=== PATIENT | female | born 1965 | race Caucasian/White ===

== ENCOUNTER 2016-04-22 05:41 | Emergency (ER) | payer SELFPAY ==
[2016-04-22] MEDS ORDERED: ASPIRIN 81 MG CHEW PO STA (06:01)
[2016-04-22] MEDS ORDERED: METOCLOPRAMIDE 5 MG/ML 2 ML VIAL IVP STA (06:25)
--- NOTE | 2016-04-22 06:28 | ED ---
Chest Pain HPI - General Chief Complaint: Chest Pain Stated Complaint: Chest/Back Pain Time Seen by Provider: 04/22/16 06:01 Source: patient, family, RN notes reviewed Mode of arrival: ambulatory Limitations: no limitations - History of Present Illness Initial Comments: This patient is 50-year-old woman who has had nearly one week of left sided chest pain. She states the pain is constant, sharp, moderate to severe. It gets worse when she presses on her ribs or if she takes a deep breath. She states it better if she remains still. She was seen at an urgent care and told that they felt she had pleuritis. She states that they did check an x-ray and an EKG. Over the course of tonight she has had 4-5 episodes of vomiting. She is also now having some moderate aching headache. MD Complaint: chest pain Onset/Timin -: days(s) Onset: during rest Pain Location: left chest Pain Radiation: none Severity: severe Quality: sharp Consistency: constant Improves With: nothing Worsens With: inspiration, palpation Anginal Symptoms: nausea, vomiting Treatments Prior to Arrival: none - Related Data Home Medications Medication Instructions Recorded Confirmed Albuterol Sulfate [Proair Hfa] 1 - 2 puff INHALATION RT-Q6H PRN 12/02/15 Cetirizine HCl [Zyrtec] 10 mg PO DAILY 12/02/15 04/22/16 Cholecalciferol [Vitamin D3] 1,000 unit PO DAILY 12/02/15 04/22/16 Cyclobenzaprine [Flexeril] 10 mg PO BID PRN 12/02/15 04/22/16 Famotidine [Pepcid] 20 mg PO BID 12/02/15 04/22/16 Fluticasone Nasal [place] [Flonase 1 spray EA NOSTRIL DAILY 12/02/15 04/22/16 Nasal [place]] HYDROcodone/APAP 5-325MG [[place] 1 tab PO Q6HR PRN 12/02/15 04/22/16 5-325] Ibuprofen [Motrin] 800 mg PO TID PRN 12/02/15 04/22/16 Multivitamins, Thera [Multivitamin] 1 tab PO DAILY 12/02/15 04/22/16 l Acidophil/B Lactis/B [place] 460 mg PO DAILY 12/02/15 04/22/16 [Florajen3 Capsule] Allergies Allergy/AdvReac Type Severity Reaction Status Date / Time cefaclor [From [facility]] Allergy Unknown Verified 04/22/16 05:51 clindamycin Allergy Unknown Verified 04/22/16 05:51 Penicillins Allergy Rash/Hives Verified 04/22/16 05:51 Review of Systems ROS Statement: Those systems with pertinent positive or pertinent negative responses have been documented in the HPI. ROS Other: All systems not noted in ROS Statement are negative. Constitutional: Denies: fever, chills Respiratory: Denies: cough, dyspnea, wheezes, hemoptysis Cardiovascular: Reports: as per HPI, chest pain. Denies: palpitations, orthopnea, edema, syncope Gastrointestinal: Reports: nausea, vomiting. Denies: abdominal pain, diarrhea, constipation, melena, hematochezia Genitourinary: Denies: dysuria, hematuria Musculoskeletal: Denies: back pain Skin: Denies: rash Neurological: Reports: headache. Denies: weakness, numbness, paresthesias EKG Findings - EKG Results: EKG: interpreted by ANNABELLA DAY, sinus rhythm (Rate 89 bpm), normal axis, normal QRS, normal ST/T, no acute changes Past Medical History Past Medical History: Fibromyalgia, Osteoarthritis (OA) Additional Past Medical History / Comment(s): ARTHRITIS, SPURS, DJD, NEUROPATHY History of Any Multi-Drug Resistant Organisms: None Reported Past Surgical History: Section, Cholecystectomy Past Psychological History: Anxiety Smoking Status: Current every day smoker Past Alcohol Use History: Occasional Past Drug Use History: None Reported General Exam Limitations: no limitations General appearance: alert, in no apparent distress Head exam: Present: atraumatic, normocephalic, normal inspection Eye exam: Present: normal appearance. Absent: scleral icterus, conjunctival injection ENT exam: Present: normal oropharynx Neck exam: Present: normal inspection, full ROM Respiratory exam: Present: normal lung sounds bilaterally, chest wall tenderness. Absent: respiratory distress, wheezes, rales, rhonchi, stridor, accessory muscle use, decreased breath sounds, prolonged expiratory Cardiovascular Exam: Present: regular rate, normal rhythm, normal heart sounds. Absent: systolic murmur, diastolic murmur, rubs, gallop GI/Abdominal exam: Present: soft. Absent: distended, tenderness, guarding, rebound, mass Extremities exam: Present: normal inspection, normal capillary refill. Absent: pedal edema, calf tenderness Back exam: Present: normal inspection. Absent: CVA tenderness (R), CVA tenderness (L) Neurological exam: Present: alert Skin exam: Present: warm, dry, intact, normal color. Absent: rash, cyanosis, diaphoretic, erythema, petechiae, pallor, mottled Course Vital Signs 04/22/16 04/22/16 05:49 06:23 Temperature 97 F L Pulse Rate 95 85 Respiratory 20 20 Rate Blood Pressure 123/68 129/60 O2 Sat by Pulse 100 100 Oximetry Disposition Clinical Impression: Viral syndrome, Pleuritis Disposition: HOME SELF-CARE Condition: Fair Instructions: Pleurisy (ED), Viral Syndrome (ED) Referrals: Janneth Benjamin MD [Primary Care Provider] - 1-2 days
[2016-04-22 06:34] LABS: Basophils % (A) 0 %; CH 35.8; CHCM 35.2; Eosinophils # (A) 0.1 k/uL (0-0.7); Eosinophils % (A) 1 %; HCT 44.5 % (34.0-46.0); HGB 15.3 gm/dL (11.4-16.0); Luc # (Auto) 0.08; Luc % (Auto) 1; Lymphocytes # (A) 1.7 k/uL (1.0-4.8); Lymphocytes % (A) 14 %; MCH 34.9 pg (25.0-35.0); MCHC 34.3 g/dL (31.0-37.0); Mean Platelet Volume 7.1; Monocytes # (A) 0.5 k/uL (0-1.0); Monocytes % (A) 5 %; Neutrophils # (A) 9.1 k/uL (1.3-7.7); Neutrophils % (A) 80 %; RBC 4.36 m/uL (3.80-5.40); RDW 12.3 % (11.5-15.5); WBC 11.5 k/uL (3.8-10.6); WBC (Perox) 11.46
[2016-04-22 06:43] LABS: ALT 37 U/L (9-52); AST 19 U/L (14-36); Alkaline Phosphatase 75 U/L (38-126); Amylase 46 U/L (30-110); Anion Gap 9 mmol/L; Blood Urea Nitrogen 10 mg/dL (7-17); Calcium 9.6 mg/dL (8.4-10.2); Carbon Dioxide 25 mmol/L (22-30); Chloride 107 mmol/L (98-107); Glucose 108 mg/dL (74-99); Magnesium 1.8 mg/dL (1.6-2.3); Non-African American GFR(MDRD) >60 (>60 ml/min/1.73 sqM); Sodium 141 mmol/L (137-145); Total Bilirubin 0.5 mg/dL (0.2-1.3); Total Protein 7.3 g/dL (6.3-8.2)
--- NOTE | 2016-04-22 06:47 | XR ---
EXAMINATION TYPE: XR chest 1V portable DATE OF EXAM: 04/22/2016 6:36 AM COMPARISON: 07/31/2013 HISTORY: History of chest pain, severe headaches. TECHNIQUE: Single frontal view of the chest is obtained. FINDINGS: Mild chronic interstitial lung changes are suggested. No definite focal pneumonia or pneumothorax or pleural effusion is noted.. The cardiac silhouette size is within normal limits. The osseous struc tures are intact. IMPRESSION: 1. No definite active lung infiltrates. 2. Chronic lung changes.
[2016-04-22] MEDS ORDERED: MORPHINE SULFATE 4 MG/ML SYRINGE IV STA (09:09)
[2016-04-22] MEDS ORDERED: diphenhydrAMINE 50 MG/ML 1 ML VIAL IVP STA (09:09)
[2016-04-22 10:07] VITALS: BP 128/60; PULSE 97; RESP 16; TEMP 97.7
== END 2016-04-22 10:11 | disposition home or self-care (01) ==
LOC: EC 05:41
DX: B34.9 Viral infection, unspecified (principal); R09.1 Pleurisy; R51 Headache; Z79.899 Other long term (current) drug therapy; Z79.51 Long term (current) use of inhaled steroids; Z88.1 Allergy status to other antibiotic agents; Z88.0 Allergy status to penicillin; M19.90 Unspecified osteoarthritis, unspecified site; F17.200 Nicotine dependence, unspecified, uncomplicated
CPT/HCPCS: 36415; 93005; 85379; 80053; 82150; 83690; 83735; 84484; 85025; 71010; 99285; 96374; J2765

== ENCOUNTER 2016-07-11 11:30 | Day surgery (SDC) | payer OTHER ==
[2016-07-11 12:24] VITALS: TEMP 97.8
[2016-07-11 13:45] VITALS: BP 113/67; PULSE 68; RESP 16
--- NOTE | 2016-07-11 14:08 | US ---
EXAMINATION TYPE: US FNA thyroid DATE OF EXAM: 07/11/2016 1:39 PM COMPARISON: NONE HISTORY: Thyroid nodule, E04.1 Maximal barrier technique was utilized. Ultrasound using sterile technique. The skin overlying the no dule was localized with ultrasound and the overlying skin prepped and draped. Lidocaine used for loca l anesthesia. 5 passes with a 25-gauge needle were made into the nodule under ultrasound guidance. As pirate specimen submitted to cytology. Following the procedure hemostasis achieved. No immediate comp lication IMPRESSION: Status post ultrasound-guided fine-needle aspiration of thyroid nodule, pathology pending .
== END 2016-07-11 13:50 | disposition home or self-care (01) ==
LOC: RADPROMAIN 11:30
PROVIDERS: ATTEND Surgery
DX: E04.1 Nontoxic single thyroid nodule (principal)
CPT/HCPCS: 10022; 76942; 88173; 88305

== ENCOUNTER → 2016-09-29 | Outpatient (CLI) | payer OTHER ==
--- NOTE | 2016-09-29 10:48 | USB ---
Reason for exam: follow-up at short interval from prior study. History: Family history of breast cancer in maternal aunt at age 40, breast cancer in maternal grandmother at age 80, and breast cancer in mother at age 65. US breast aspiration single LT of the left breast, March 28, 2016. Benign US biopsy breast VAD RT of the right breast, March 28, 2016. Benign US breast aspiration single LT of the left breast, April 22, 2015. Benign US biopsy breast VAD LT of the left breast, April 22, 2015. Indicated problem(s): palpable abnormality in both breasts. Physical Findings: Nurse did not find any significant physical abnormalities on exam. US Breast Limited BILAT Right breast ultrasound includes all four quadrants, the retroareolar region and axilla. Finding demonstrates a 1.2 x 0.8 x 0.9cm oval, solid lesion at 6 o'clock, prior biopsy, a 0.7 x 0.5 x 0.6cm oval, cystic lesion at 8 o'clock, a 0.8 x 0.6 x 0.8cm oval, cystic lesion at 11 o'clock BB, a 1.4 x 1.1 x 1.5cm oval, cystic lesion at 10 o'clock BB and a 1.3 x 1.0 x 2.2cm oval, cystic lesion at 10 o'clock BB. Left breast ultrasound demonstrates a 1.1 x 0.8 x 1.0cm oval, cystic lesion at 2 o'clock and a 0.5 x 0.5 x 1.1cm cystic lesion at 3 o'clock. Numerous scattered cysts. These results were verbally communicated with the patient and result sheet given to the patient on 09/29/16. ASSESSMENT: Benign, BI-RAD 2 RECOMMENDATION: Routine screening mammogram of both breasts in 6 months. Back on schedule.
== END | disposition home or self-care (01) ==
LOC: RADUSWWP 09:27
PROVIDERS: ATTEND Internal Medicine
DX: R92.8 Other abnormal and inconclusive findings on diagnostic imaging of breast (principal)

== ENCOUNTER → 2016-10-20 | Outpatient (CLI) | payer OTHER ==
--- NOTE | 2016-10-20 14:36 | US ---
EXAMINATION TYPE: US pelvic complete DATE OF EXAM: 10/20/2016 COMPARISON: NONE CLINICAL HISTORY: R10.2 Pelvic Pain. LLQ pain, h/o ovarian cysts and uterine fibroid, [employer] 4yrs a go, 2 c-sections TECHNIQUE: TA Date of LMP: 4 yrs ago EXAM MEASUREMENTS: Uterus: 9.2 x 5.9 x 4.4cm Endometrial Stripe: 0.4 cm Right Ovary: 2.5 x 1.8 x 1.7 cm Left Ovary: 2.4 x 1.7 x 1.8 cm 1. Uterus: Anteverted 1.8cm left fundal fibroid seen, 0.8cm calcification noted within GOGO 2. Endometrium: wnl 3. Right Ovary: wnl 4. Left Ovary: wnl 5. Bilateral Adnexa: wnl 6. Posterior cul-de-sac: wnl IMPRESSION: 1. Uterine fibroid. 2. Echogenic focus within the lower uterine segment.
== END | disposition home or self-care (01) ==
LOC: RADUSWWP 13:36
PROVIDERS: ATTEND Internal Medicine
DX: D25.9 Leiomyoma of uterus, unspecified (principal)
CPT/HCPCS: 76856

== ENCOUNTER → 2016-12-05 | Outpatient (CLI) | payer OTHER ==
--- NOTE | 2016-12-05 16:04 | XR ---
EXAMINATION TYPE: XR hand complete LT DATE OF EXAM: 12/05/2016 COMPARISON: NONE HISTORY: Hit with long one week prior TECHNIQUE: Three-view left hand FINDINGS: No acute fractures are evident. The patient's ring is on during this exam. Soft tissues maxwell ear unremarkable. IMPRESSION: 1. Normal three-view left hand
--- NOTE | 2016-12-05 16:05 | XR ---
EXAMINATION TYPE: XR wrist complete LT DATE OF EXAM: 12/05/2016 COMPARISON: NONE HISTORY: Left wrist hit by log TECHNIQUE: Three-view left wrist FINDINGS: No acute fractures are evident. Soft tissues are normal. Nuclear medicine bone scan could b e performed for continued pain. IMPRESSION: 1. Normal three-view left wrist
== END | disposition home or self-care (01) ==
LOC: RADXRYALE 15:13
PROVIDERS: ATTEND Internal Medicine
DX: M79.642 Pain in left hand (principal); M25.532 Pain in left wrist

== ENCOUNTER → 2017-01-01 | Outpatient (CLI) | payer OTHER ==
--- NOTE | 2017-01-01 15:25 | XR ---
EXAMINATION TYPE: XR foot complete RT DATE OF EXAM: 01/01/2017 CLINICAL HISTORY: Right foot pain after injury last week. TECHNIQUE: Frontal, lateral, and oblique images of the right foot are obtained. COMPARISON: None FINDINGS: There is no acute fracture/dislocation evident in the right foot. Some flexion in secondar y through fifth toes is seen making evaluation slightly suboptimal. There is hallux valgus positionin g first metatarsophalangeal joint with mild joint space loss and minimal spurring at this level. Ther e is moderate size inferior calcaneal spur. The overlying soft tissue appears unremarkable. IMPRESSION: There is no acute fracture or dislocation in the right foot.
== END | disposition home or self-care (01) ==
LOC: RADXRYALE 15:08
PROVIDERS: ATTEND Internal Medicine
DX: M79.671 Pain in right foot (principal)

== ENCOUNTER 2017-08-15 20:58 | Emergency (ER) | payer BC, OTHER ==
[2017-08-15 21:23] VITALS: TEMP 98.7
[2017-08-15] MEDS ORDERED: SODIUM CHLORIDE 0.9% 1,000 ML IV STA (21:34)
[2017-08-15] MEDS ORDERED: KETOROLAC 30 MG/ML 1 ML VIAL IVP STA (21:34)
--- NOTE | 2017-08-15 21:36 | ED ---
General Adult HPI - General Chief complaint: Abdominal Pain Stated complaint: Flank pain Time Seen by Provider: 08/15/17 21:26 Source: patient, RN notes reviewed Mode of arrival: ambulatory Limitations: no limitations - History of Present Illness Initial comments: This is a 52-year-old female who presents to the emergency department with chief complaint of flank pain. Patient states that she was recently started on azithromycin for bronchitis and a sinus infection. She states that she took her dose of azithromycin this morning and approximately an hour later she developed right flank pain. She states that this began at 11:30 this morning. She describes the pain as intermittent starting off as a dull ache and then becoming a sharp pain. She states initially she only felt the pain in the right side but is now experiencing radiation of pain to the right groin. Denies any abdominal pain, nausea or vomiting, diarrhea or constipation. Denies fevers or chills. She does report a history of a kidney stone in 1998. - Related Data Home Medications Medication Instructions Recorded Confirmed Cetirizine HCl [Zyrtec] 10 mg PO DAILY 12/02/15 08/15/17 Cholecalciferol [Vitamin D3] 1,000 unit PO DAILY 12/02/15 08/15/17 Cyclobenzaprine [Flexeril] 10 mg PO BID PRN 12/02/15 08/15/17 Fluticasone Nasal [place] [Flonase 1 spray EA NOSTRIL DAILY 12/02/15 08/15/17 Nasal [place]] Ibuprofen [Motrin] 800 mg PO DAILY PRN 12/02/15 08/15/17 Multivitamins, Thera [Multivitamin] 1 tab PO DAILY 12/02/15 08/15/17 Turmeric/Turmeric Root Extract 1 cap PO DAILY 07/11/16 08/15/17 [Turmeric 450-50 mg Capsule] Azithromycin [Zithromax Z-pack] See Taper PO DIRECTED 08/15/17 08/15/17 Biotin 5 mg PO HS 08/15/17 08/15/17 Magnesium Oxide [Mag-Oxide] 200 mg PO DAILY 08/15/17 08/15/17 Vitamin E 100 unit PO HS 08/15/17 08/15/17 Allergies Allergy/AdvReac Type Severity Reaction Status Date / Time Penicillins Allergy Rash/Hives Verified 08/15/17 22:07 cefaclor [From Ceclor] AdvReac EAR RINGING Verified 08/15/17 22:07 clindamycin AdvReac EAR RINGING Verified 08/15/17 22:07 Review of Systems ROS Statement: Those systems with pertinent positive or pertinent negative responses have been documented in the HPI. ROS Other: All systems not noted in ROS Statement are negative. Past Medical History Past Medical History: Fibromyalgia, Osteoarthritis (OA) Additional Past Medical History / Comment(s): ARTHRITIS, SPURS, DJD, NEUROPATHY History of Any Multi-Drug Resistant Organisms: None Reported Past Surgical History: Section, Cholecystectomy Additional Past Surgical History / Comment(s): BACK INJECTIONS FOR HERNIATED DISC X8. Past Psychological History: Anxiety Smoking Status: Current every day smoker Past Alcohol Use History: Occasional Past Drug Use History: None Reported General Exam - General Exam Comments Initial Comments: General: Awake and alert, well-developed; in no apparent distress. HEENT: Head atraumatic, normocephalic. Pupils are equal, round and reactive to light. Extraocular movements intact. Oropharynx moist without erythema or exudate. Neck: Supple. Normal ROM. Cardiovascular: Regular rate and rhythm. No murmurs, rubs or gallops. Chest symmetrical. Respiratory: Lungs clear to auscultation bilaterally. No wheezes, rales or rhonchi. Normal respiratory effort with no use of accessory muscles. Abdomen: Soft, non-tender, non-distended. No rigidity, rebound or guarding. Normal bowel sounds in all 4 quadrants. Right CVA tenderness. Musculoskeletal: Normal ROM, no tenderness bilateral upper and lower extremities. Ambulating normally. Skin: [place], warm and dry without rashes or lesions. Neurological: Alert and oriented x3. CN II-XII grossly intact. Speech is fluent and answers are appropriate. No focal neuro deficits. Psychiatric: Normal mood and affect. No overt signs of depression or anxiety noted. Limitations: no limitations Course Vital Signs 08/15/17 08/15/17 21:21 23:22 Temperature 98.7 F 98.7 F Pulse Rate 115 H 92 Respiratory 20 16 Rate Blood Pressure 101/66 103/51 O2 Sat by Pulse 99 99 Oximetry - Reevaluation(s) Reevaluation #1: At this time, patient is resting comfortably in bed. She does continue to complain of right flank pain. On review of patient's laboratories studies, UA does reveal red blood cells and blood. Patient will be sent for a computed tomography scan without contrast to rule out kidney stone. 08/15/17 22:52 Reevaluation #2: At this time, patient states that her right flank pain has subsided but now complains of indigestion. She will be given a GI cocktail. Lab findings and computed tomography scan findings were discussed with attending physician, Dr. Gonzales. Recommended repeating the computed tomography scan with IV contrast if unable to get patient's symptoms under control. This plan was discussed with patient who is in agreement. She is in no acute distress at this time. 08/15/17 23:52 Medical Decision Making - Medical Decision Making This is a 52-year-old female who presents to the emergency department with chief complaint of right flank pain. Patient describes the pain as a constant dull ache with intensifying sharp pain. She states that the pain radiates to her right groin. Abdomen is soft and non-tender on palpation. CBC and CMP were unremarkable. Urine was positive for blood so a computed tomography scan of the abdomen and pelvis without contrast was obtained to rule out kidney stone. Computed tomography scan revealed no acute abnormalities. Patient's symptoms have improved. Vital signs are stable and she is in no acute distress. Return parameters were discussed. Patient will be discharged home at this time. She is in agreement and voices understanding. All questions were answered. - Lab Data Result diagrams: 08/15/17 22:15 08/15/17 22:15 Lab Results 08/15/17 08/15/17 08/15/17 Range/Units 22:15 22:15 22:15 WBC 8.7 (3.8-10.6) k/uL RBC 4.48 (3.80-5.40) m/uL Hgb 15.2 (11.4-16.0) gm/dL Hct 45.1 (34.0-46.0) % MCV 100.7 H (80.0-100.0) fL MCH 33.9 (25.0-35.0) pg MCHC 33.7 (31.0-37.0) g/dL RDW 12.3 (11.5-15.5) % Plt Count 304 (150-450) k/uL Neutrophils % 57 % Lymphocytes % 31 % Monocytes % 6 % Eosinophils % 3 % Basophils % 1 % Neutrophils # 5.0 (1.3-7.7) k/uL Lymphocytes # 2.7 (1.0-4.8) k/uL Monocytes # 0.6 (0-1.0) k/uL Eosinophils # 0.3 (0-0.7) k/uL Basophils # 0.0 (0-0.2) k/uL PT (9.0-12.0) sec INR (<1.2) APTT (22.0-30.0) sec Sodium 145 (137-145) mmol/L Potassium 3.9 (3.5-5.1) mmol/L Chloride 103 (98-107) mmol/L Carbon Dioxide 31 H (22-30) mmol/L Anion Gap 11 mmol/L BUN 12 (7-17) mg/dL Creatinine 0.60 (0.52-1.04) mg/dL Est GFR (CKD-EPI)AfAm >90 (>60 ml/min/1.73 sqM) Est GFR (CKD-EPI)NonAf >90 (>60 ml/min/1.73 sqM) Glucose 102 H (74-99) mg/dL Calcium 9.5 (8.4-10.2) mg/dL Total Bilirubin 0.2 (0.2-1.3) mg/dL AST 22 (14-36) U/L ALT 39 (9-52) U/L Alkaline Phosphatase 67 (38-126) U/L Total Protein 6.4 (6.3-8.2) g/dL Albumin 3.9 (3.5-5.0) g/dL Amylase 70 (30-110) U/L Lipase 81 (23-300) U/L Urine Color Yellow Urine Appearance Cloudy H (Clear) Urine pH 7.0 (5.0-8.0) Ur Specific [place] 1.011 (1.001-1.035) Urine Protein Negative (Negative) Urine Glucose (UA) Negative (Negative) Urine Ketones Negative (Negative) Urine Blood Small H (Negative) Urine Nitrite Negative (Negative) Urine Bilirubin Negative (Negative) Urine Urobilinogen <2.0 (<2.0) mg/dL Ur Leukocyte Esterase Large H (Negative) Urine RBC 10 H (0-5) /hpf Urine WBC 4 (0-5) /hpf Ur Squamous Epith Cells 11 H (0-4) /hpf Urine Bacteria Rare H (None) /hpf Urine Mucus Rare H (None) /hpf 08/15/17 Range/Units 22:15 WBC (3.8-10.6) k/uL RBC (3.80-5.40) m/uL Hgb (11.4-16.0) gm/dL Hct (34.0-46.0) % MCV (80.0-100.0) fL MCH (25.0-35.0) pg MCHC (31.0-37.0) g/dL RDW (11.5-15.5) % Plt Count (150-450) k/uL Neutrophils % % Lymphocytes % % Monocytes % % Eosinophils % % Basophils % % Neutrophils # (1.3-7.7) k/uL Lymphocytes # (1.0-4.8) k/uL Monocytes # (0-1.0) k/uL Eosinophils # (0-0.7) k/uL Basophils # (0-0.2) k/uL PT 9.4 (9.0-12.0) sec INR 0.9 (<1.2) APTT 20.7 L (22.0-30.0) sec Sodium (137-145) mmol/L Potassium (3.5-5.1) mmol/L Chloride (98-107) mmol/L Carbon Dioxide (22-30) mmol/L Anion Gap mmol/L BUN (7-17) mg/dL Creatinine (0.52-1.04) mg/dL Est GFR (CKD-EPI)AfAm (>60 ml/min/1.73 sqM) Est GFR (CKD-EPI)NonAf (>60 ml/min/1.73 sqM) Glucose (74-99) mg/dL Calcium (8.4-10.2) mg/dL Total Bilirubin (0.2-1.3) mg/dL AST (14-36) U/L ALT (9-52) U/L Alkaline Phosphatase (38-126) U/L Total Protein (6.3-8.2) g/dL Albumin (3.5-5.0) g/dL Amylase (30-110) U/L Lipase (23-300) U/L Urine Color Urine Appearance (Clear) Urine pH (5.0-8.0) Ur Specific [place] (1.001-1.035) Urine Protein (Negative) Urine Glucose (UA) (Negative) Urine Ketones (Negative) Urine Blood (Negative) Urine Nitrite (Negative) Urine Bilirubin (Negative) Urine Urobilinogen (<2.0) mg/dL Ur Leukocyte Esterase (Negative) Urine RBC (0-5) /hpf Urine WBC (0-5) /hpf Ur Squamous Epith Cells (0-4) /hpf Urine Bacteria (None) /hpf Urine Mucus (None) /hpf - Radiology Data Radiology results: report reviewed, image reviewed X-ray KUB impression: Overall nonobstructive bowel gas pattern. CT abdomen and pelvis without contrast impression: Negative computed tomography scan of abdomen and pelvis. No evidence of renal stone or obstruction. No evidence of appendicitis. Disposition Clinical Impression: Flank pain Disposition: HOME SELF-CARE Condition: Good Instructions: Flank Pain (ED) Additional Instructions: Please follow up with primary care provider within 1-2 days. Return to emergency department if symptoms should worsen or any concerns arise. Is patient prescribed a controlled substance at d/c from ED?: No Referrals: Janneth Benjamin MD [Primary Care Provider] - 1-2 days Time of Disposition: 00:35
--- NOTE | 2017-08-15 22:03 | XR ---
EXAMINATION TYPE: XR KUB DATE OF EXAM: 08/15/2017 COMPARISON: NONE HISTORY: Pain TECHNIQUE: Single supine KUB image of the abdomen is obtained FINDINGS: Small bowel demonstrates no evidence for dilatation or air fluid levels. Gas and fecal material is seen in non-distended colon. No convincing evidence for pneumoperitoneum. No unusual calcifications. The lung bases are clear. The osseous structures are intact. IMPRESSION: 1. Overall nonobstructive bowel gas pattern.
[2017-08-15 22:29] LABS: Basophils % (A) 1 %; Eosinophils # (A) 0.3 k/uL (0-0.7); Eosinophils % (A) 3 %; HCT 45.1 % (34.0-46.0); HGB 15.2 gm/dL (11.4-16.0); Lymphocytes # (A) 2.7 k/uL (1.0-4.8); Lymphocytes % (A) 31 %; MCH 33.9 pg (25.0-35.0); MCHC 33.7 g/dL (31.0-37.0); MCV 100.7 fL (80.0-100.0); Mean Platelet Volume 6.6; Monocytes # (A) 0.6 k/uL (0-1.0); Monocytes % (A) 6 %; Neutrophils % (A) 57 %; Platelet Count 304 k/uL (150-450); RBC 4.48 m/uL (3.80-5.40); RDW 12.3 % (11.5-15.5); WBC 8.7 k/uL (3.8-10.6)
[2017-08-15 22:42] LABS: Appearance,Urine Cloudy (Clear); Bacteria,Urine Rare /hpf; Bilirubin,Urine Negative (Negative); Blood,Urine Small (Negative); Color,Urine Yellow; Glucose,Urine (UA) Negative (Negative); Ketones,Urine Negative (Negative); Leukocyte Esterase,Urine Large (Negative); Mucus,Urine Rare /hpf; Nitrite,Urine Negative (Negative); Protein,Urine Negative (Negative); RBC,Urine 10 /hpf (0-5); Specific Gravity,Urine 1.011 (1.001-1.035); Squamous Epithelial Cell,Urine 11 /hpf (0-4); Urobilinogen,Urine <2.0 mg/dL (<2.0); WBC,Urine 4 /hpf (0-5)
[2017-08-15 22:46] LABS: ALT 39 U/L (9-52); AST 22 U/L (14-36); Albumin 3.9 g/dL (3.5-5.0); Alkaline Phosphatase 67 U/L (38-126); Amylase 70 U/L (30-110); Anion Gap 11 mmol/L; Blood Urea Nitrogen 12 mg/dL (7-17); Calcium 9.5 mg/dL (8.4-10.2); Carbon Dioxide 31 mmol/L (22-30); Chloride 103 mmol/L (98-107); Glucose 102 mg/dL (74-99); Lipase 81 U/L (23-300); Potassium 3.9 mmol/L (3.5-5.1); Sodium 145 mmol/L (137-145); Total Bilirubin 0.2 mg/dL (0.2-1.3); Total Protein 6.4 g/dL (6.3-8.2)
[2017-08-15 22:52] LABS: INR 0.9 (<1.2); Prothrombin Time 9.4 sec (9.0-12.0)
[2017-08-15 23:08] LABS: Partial Thromboplastin Time 20.7 sec (22.0-30.0)
[2017-08-15] MEDS: MORPHINE SULFATE 4 MG/ML SYRINGE IVP ONE ×2 (23:23)
[2017-08-15 23:31] VITALS: BP 103/51; PULSE 92; RESP 16
--- NOTE | 2017-08-15 23:35 | CT ---
EXAMINATION TYPE: CT abdomen pelvis wo con DATE OF EXAM: 08/15/2017 COMPARISON: NONE HISTORY: right flank pain CT DLP: 318.40 mGycm Automated exposure control for dose reduction was used. TECHNIQUE: Helical acquisition of images was performed from the lung bases through the pelvis. FINDINGS: The lung bases are clear. There is no pleural effusion. Heart size is normal. Liver spleen pancreas appear normal. There are clips from cholecystectomy. Bile ducts are not dilated . There is no adrenal mass. Kidneys have normal size and contour. There is no hydronephrosis. There i s no evidence of a renal calculus. There is no retroperitoneal adenopathy. I see no intestinal wall t hickening. There are no dilated loops. Bladder distends smoothly. There is no sign of appendicitis. B martine structures are intact. Uterus is anteverted. IMPRESSION: NEGATIVE CT SCAN OF THE ABDOMEN AND PELVIS. NO EVIDENCE OF RENAL STONE OR OBSTRUCTION. NO EVIDENCE OF APPENDICITIS.
[2017-08-15] MEDS ORDERED: MAG HYDROX/AL HYDROX/SIMETH 30 ML, HYOSCYAMINE ELIXIR 10 ML, CIMETIDINE HCL 300 MG, LID... PO STA ×4 (23:52)
== END 2017-08-16 01:00 | disposition home or self-care (01) ==
LOC: EC 20:58
DX: R10.31 Right lower quadrant pain (principal); K30 Functional dyspepsia; F17.200 Nicotine dependence, unspecified, uncomplicated; Z79.51 Long term (current) use of inhaled steroids; Z79.899 Other long term (current) drug therapy; Z88.0 Allergy status to penicillin; Z88.1 Allergy status to other antibiotic agents
CPT/HCPCS: 99284; 96374; 96375; 96361; 36415; 80053; 82150; 83690; 85025; 85610; 85730; 81001; 87086; 74018; 74176; J2270; J1885

== ENCOUNTER → 2017-09-27 | Outpatient (CLI) | payer BC ==
--- NOTE | 2017-09-28 09:56 | MM ---
Reason for exam: screening (asymptomatic). Last mammogram was performed 1 year and 6 months ago. History: Family history of breast cancer in maternal aunt at age 40, breast cancer in maternal grandmother at age 80, and breast cancer in mother at age 65. US breast aspiration single LT of the left breast, March 28, 2016. Benign US biopsy breast VAD RT of the right breast, March 28, 2016. Benign US breast aspiration single LT of the left breast, April 22, 2015. Benign US biopsy breast VAD LT of the left breast, April 22, 2015. Physical Findings: A clinical breast exam by your physician is recommended on an annual basis and results should be correlated with mammographic findings. MG Screening Mammo w CAD Bilateral CC and MLO view(s) were taken. Prior study comparison: March 28, 2016, right breast MG diagnostic mammo RT wo CAD. March 10, 2016, bilateral MG diagnostic mammo w CAD ANIYA. The breast tissue is extremely dense which could obscure a lesion on mammography. Finding: There are typically benign round, regional calcifications in the left breast. Previous mammotome biopsy in the right and left breast x 2. There is a chronic nodularity bilaterally, greater in the left breast. There is no discrete abnormality. ASSESSMENT: Benign, BI-RAD 2 RECOMMENDATION: Routine screening mammogram of both breasts in 1 year.
== END | disposition home or self-care (01) ==
LOC: RADMAMWWP 13:04
PROVIDERS: ATTEND Internal Medicine
DX: Z12.31 Encounter for screening mammogram for malignant neoplasm of breast (principal)
CPT/HCPCS: 77067

== ENCOUNTER 2018-01-05 17:31 | Emergency (ER) | payer BC ==
[2018-01-05 17:56] VITALS: RESP 18
--- NOTE | 2018-01-05 18:02 | ED ---
General Adult HPI - General Chief complaint: Chest Pain Stated complaint: Chest Pain Time Seen by Provider: 01/05/18 18:00 Source: patient, family, RN notes reviewed Mode of arrival: wheelchair Limitations: no limitations - History of Present Illness Initial comments: Patient is a pleasant 52-year-old female presenting to the emergency department with complaints of chest discomfort and headache. Onset of symptoms was around an hour ago. Patient was at rest. Patient does occasionally get headaches secondary to chronic neck problems. Patient states this was worse than regular headaches. Headache was fairly sudden. Headache was severe however has somewhat improved and is now 7/10. Headache is posterior. No associated confusion, speech problems, weakness or loss of sensation. Patient is also having chest discomfort. Patient has been experiencing chest discomfort intermittently for months. Discomfort feels like pressure is currently rated 5/ 10. Patient did take 2 aspirin following onset of symptoms of headache and chest discomfort. Patient does have some associated nausea and dyspnea that are near resolved. No diaphoresis. Patient had planned on seeing a installations inspector however has not done that yet. - Related Data Home Medications Medication Instructions Recorded Confirmed Cetirizine HCl [Zyrtec] 10 mg PO DAILY 12/02/15 01/05/18 Cholecalciferol [Vitamin D3] 1,000 unit PO DAILY 12/02/15 01/05/18 Cyclobenzaprine [Flexeril] 10 mg PO BID PRN 12/02/15 01/05/18 Fluticasone Nasal [place] [Flonase 1 spray EA NOSTRIL DAILY 12/02/15 01/05/18 Nasal [place]] Ibuprofen [Motrin] 800 mg PO DAILY PRN 12/02/15 01/05/18 Multivitamins, Thera [Multivitamin] 1 tab PO DAILY 12/02/15 01/05/18 Turmeric/Turmeric Root Extract 1 cap PO DAILY 07/11/16 01/05/18 [Turmeric 450-50 mg Capsule] Biotin 5 mg PO HS 08/15/17 01/05/18 Magnesium Oxide [Mag-Oxide] 200 mg PO DAILY 08/15/17 01/05/18 Vitamin E 100 unit PO HS 08/15/17 01/05/18 Allergies Allergy/AdvReac Type Severity Reaction Status Date / Time Penicillins Allergy Rash/Hives Verified 01/05/18 18:06 cefaclor [From Ceclor] AdvReac EAR RINGING Verified 01/05/18 18:06 clindamycin AdvReac EAR RINGING Verified 01/05/18 18:06 Review of Systems ROS Statement: Those systems with pertinent positive or pertinent negative responses have been documented in the HPI. ROS Other: All systems not noted in ROS Statement are negative. Constitutional: Denies: fever Eyes: Denies: eye pain ENT: Denies: ear pain Respiratory: Reports: dyspnea. Denies: cough Cardiovascular: Reports: chest pain Endocrine: Denies: fatigue Gastrointestinal: Reports: nausea. Denies: abdominal pain Genitourinary: Denies: dysuria Musculoskeletal: Denies: back pain Skin: Denies: rash Neurological: Reports: headache. Denies: weakness, confusion Past Medical History Past Medical History: Fibromyalgia, Osteoarthritis (OA) Additional Past Medical History / Comment(s): ARTHRITIS, SPURS, DJD, NEUROPATHY History of Any Multi-Drug Resistant Organisms: None Reported Past Surgical History: Section, Cholecystectomy, Hernia Repair Additional Past Surgical History / Comment(s): BACK INJECTIONS FOR HERNIATED DISC X8. Past Psychological History: Anxiety Smoking Status: Current every day smoker Past Alcohol Use History: Occasional Past Drug Use History: None Reported General Exam Limitations: no limitations General appearance: alert, in no apparent distress Head exam: Present: atraumatic, normocephalic Eye exam: Present: normal appearance, PERRL, EOMI. Absent: nystagmus ENT exam: Present: normal oropharynx Neck exam: Present: normal inspection Respiratory exam: Present: normal lung sounds bilaterally. Absent: chest wall tenderness Cardiovascular Exam: Present: regular rate, normal rhythm Expanded Peripheral pulses: 2+: Radial (R), Radial (L), Dorsalis Pedis (R), Dorsalis Pedis (L) GI/Abdominal exam: Present: soft. Absent: tenderness Extremities exam: Present: normal inspection. Absent: pedal edema, calf tenderness Neurological exam: Present: alert, CN II-XII intact. Absent: motor sensory deficit Expanded Neurological exam: Present: protecting the airway Patient oriented to: Present: person, place, time Speech: Present: fluid speech Cranial nerves: EOM's Intact: Normal, Facial Sensation: Normal Cerebellar function: Finger to Nose: Normal Sensory exam: Upper Extremity Light Touch: Normal, Lower Extremity Light Touch: Normal Motor strength exam: RUE: 5, LUE: 5, RLE: 5, LLE: 5 Eye Response: (4) open spontaneously Motor Response: (6) obeys commands Verbal Response: (5) oriented Psychiatric exam: Present: normal affect, normal mood Skin exam: Present: normal color Course Vital Signs 01/05/18 01/05/18 01/05/18 17:36 17:53 18:49 Temperature 97.7 F Pulse Rate 112 H 96 99 Respiratory 20 18 18 Rate Blood Pressure 121/57 136/59 O2 Sat by Pulse 100 100 100 Oximetry EKG Findings - EKG Comments: EKG Findings:: Sinus rhythm at 91. Sinus arrhythmia and PVC. HI 162. QRS 90. QT 388. QTC 477. Normal axis. No acute ST change. Normal QRS. Medical Decision Making - Medical Decision Making Patient reevaluated and resting comfortably in bed. Symptoms have improved. Headache is now currently 3/10. Chest discomfort is near resolved rated 1/10. Patient and family updated on results and plan. Case was discussed in detail with Dr. Lackey, who will admit for Dr. Benjamin. - Lab Data Result diagrams: 01/05/18 18:05 01/05/18 18:05 Lab Results 01/05/18 01/05/18 01/05/18 Range/Units 18:05 18:05 18:05 WBC 8.8 (3.8-10.6) k/uL RBC 4.13 (3.80-5.40) m/uL Hgb 14.8 (11.4-16.0) gm/dL Hct 42.0 (34.0-46.0) % MCV 101.6 H (80.0-100.0) fL MCH 35.9 H (25.0-35.0) pg MCHC 35.3 (31.0-37.0) g/dL RDW 12.2 (11.5-15.5) % Plt Count 238 (150-450) k/uL Neutrophils % 68 % Lymphocytes % 24 % Monocytes % 4 % Eosinophils % 2 % Basophils % 0 % Neutrophils # 5.9 (1.3-7.7) k/uL Lymphocytes # 2.1 (1.0-4.8) k/uL Monocytes # 0.3 (0-1.0) k/uL Eosinophils # 0.2 (0-0.7) k/uL Basophils # 0.0 (0-0.2) k/uL PT (9.0-12.0) sec INR (<1.2) APTT (22.0-30.0) sec Sodium 138 (137-145) mmol/L Potassium 4.0 (3.5-5.1) mmol/L Chloride 108 H (98-107) mmol/L Carbon Dioxide 18 L (22-30) mmol/L Anion Gap 12 mmol/L BUN 10 (7-17) mg/dL Creatinine 0.66 (0.52-1.04) mg/dL Est GFR (CKD-EPI)AfAm >90 (>60 ml/min/1.73 sqM) Est GFR (CKD-EPI)NonAf >90 (>60 ml/min/1.73 sqM) Glucose 126 H (74-99) mg/dL Calcium 9.2 (8.4-10.2) mg/dL Magnesium 1.7 (1.6-2.3) mg/dL Total Bilirubin 0.5 (0.2-1.3) mg/dL AST 31 (14-36) U/L ALT 31 (9-52) U/L Alkaline Phosphatase 63 (38-126) U/L Total Creatine Kinase 62 (30-135) U/L CK-MB (CK-2) 0.4 (0.0-2.4) ng/mL CK-MB (CK-2) Rel Index 0.6 Troponin I <0.012 (0.000-0.034) ng/mL Total Protein 7.1 (6.3-8.2) g/dL Albumin 4.2 (3.5-5.0) g/dL 01/05/18 Range/Units 18:05 WBC (3.8-10.6) k/uL RBC (3.80-5.40) m/uL Hgb (11.4-16.0) gm/dL Hct (34.0-46.0) % MCV (80.0-100.0) fL MCH (25.0-35.0) pg MCHC (31.0-37.0) g/dL RDW (11.5-15.5) % Plt Count (150-450) k/uL Neutrophils % % Lymphocytes % % Monocytes % % Eosinophils % % Basophils % % Neutrophils # (1.3-7.7) k/uL Lymphocytes # (1.0-4.8) k/uL Monocytes # (0-1.0) k/uL Eosinophils # (0-0.7) k/uL Basophils # (0-0.2) k/uL PT 9.6 (9.0-12.0) sec INR 1.0 (<1.2) APTT 19.3 L (22.0-30.0) sec Sodium (137-145) mmol/L Potassium (3.5-5.1) mmol/L Chloride (98-107) mmol/L Carbon Dioxide (22-30) mmol/L Anion Gap mmol/L BUN (7-17) mg/dL Creatinine (0.52-1.04) mg/dL Est GFR (CKD-EPI)AfAm (>60 ml/min/1.73 sqM) Est GFR (CKD-EPI)NonAf (>60 ml/min/1.73 sqM) Glucose (74-99) mg/dL Calcium (8.4-10.2) mg/dL Magnesium (1.6-2.3) mg/dL Total Bilirubin (0.2-1.3) mg/dL AST (14-36) U/L ALT (9-52) U/L Alkaline Phosphatase (38-126) U/L Total Creatine Kinase (30-135) U/L CK-MB (CK-2) (0.0-2.4) ng/mL CK-MB (CK-2) Rel Index Troponin I (0.000-0.034) ng/mL Total Protein (6.3-8.2) g/dL Albumin (3.5-5.0) g/dL - Radiology Data Radiology results: report reviewed (Computed tomography scan of the brain shows no acute process. Possible mastoiditis. CTA shows no occlusion or aneurysm.), image reviewed (Chest x-ray shows no acute process.) Disposition Clinical Impression: Chest pain, Headache Disposition: ADMITTED IP TO THIS [facility] Is patient prescribed a controlled substance at d/c from ED?: No Referrals: Janneth Benjamin MD [Primary Care Provider] - 1-2 days Decision Time: 20:16
[2018-01-05] MEDS ORDERED: METOCLOPRAMIDE 5 MG/ML 2 ML VIAL IVP STA (18:19)
[2018-01-05 18:38] LABS: Basophils % (A) 0 %; Eosinophils # (A) 0.2 k/uL (0-0.7); Eosinophils % (A) 2 %; HGB 14.8 gm/dL (11.4-16.0); Lymphocytes # (A) 2.1 k/uL (1.0-4.8); Lymphocytes % (A) 24 %; MCH 35.9 pg (25.0-35.0); MCHC 35.3 g/dL (31.0-37.0); MCV 101.6 fL (80.0-100.0); Mean Platelet Volume 7.1; Monocytes # (A) 0.3 k/uL (0-1.0); Monocytes % (A) 4 %; Neutrophils # (A) 5.9 k/uL (1.3-7.7); Neutrophils % (A) 68 %; Platelet Count 238 k/uL (150-450); RBC 4.13 m/uL (3.80-5.40); RDW 12.2 % (11.5-15.5); WBC 8.8 k/uL (3.8-10.6)
[2018-01-05 18:55] LABS: Prothrombin Time 9.6 sec (9.0-12.0)
[2018-01-05 19:00] LABS: ALT 31 U/L (9-52); AST 31 U/L (14-36); Albumin 4.2 g/dL (3.5-5.0); Alkaline Phosphatase 63 U/L (38-126); Anion Gap 12 mmol/L; Blood Urea Nitrogen 10 mg/dL (7-17); Calcium 9.2 mg/dL (8.4-10.2); Carbon Dioxide 18 mmol/L (22-30); Chloride 108 mmol/L (98-107); Creatine Kinase 62 U/L (30-135); Glucose 126 mg/dL (74-99); Magnesium 1.7 mg/dL (1.6-2.3); Sodium 138 mmol/L (137-145); Total Bilirubin 0.5 mg/dL (0.2-1.3); Total Protein 7.1 g/dL (6.3-8.2)
[2018-01-05 19:08] LABS: Partial Thromboplastin Time 19.3 sec (22.0-30.0)
[2018-01-05 19:12] LABS: Creatine Kinase MB 0.4 ng/mL (0.0-2.4); Troponin I <0.012 ng/mL (0.000-0.034)
--- NOTE | 2018-01-05 19:23 | XR ---
EXAMINATION TYPE: XR chest 2V DATE OF EXAM: 01/05/2018 COMPARISON: 04/22/2016 HISTORY: Chest pain TECHNIQUE: Frontal and lateral views of the chest are obtained. FINDINGS: There is no focal air space opacity, pleural effusion, or pneumothorax seen. The cardiac silhouette size is within normal limits. The osseous structures are intact. Multilevel degenerative changes of the thoracic spine are seen. IMPRESSION: No acute cardiopulmonary process.
--- NOTE | 2018-01-05 19:31 | CT ---
EXAMINATION TYPE: CT brain wo con DATE OF EXAM: 01/05/2018 COMPARISON: None HISTORY: Headache, nausea, sweating, right ear ringing, and chest pain. CT DLP: 1054.2 mGycm. Automated Exposure Control for Dose Reduction was Utilized. TECHNIQUE: CT scan of the head is performed without contrast. FINDINGS: There is no acute intracranial hemorrhage, mass effect, or midline shift identified. No suspicious extra-axial fluid collection. The ventricles and sulci are within normal limits in size. The globes are intact and the visualized sinuses are clear. There is near complete opacification of t he left mastoid air cells. Right mastoid air cells are well aerated. IMPRESSION: No acute intracranial hemorrhage, mass effect, or midline shift is seen. Despite the pat ient's symptoms on the right the right mastoid air cells are well aerated. Near complete opacificatio n of the left mastoid air cells suggesting mastoiditis. Correlate clinically for pain.
--- NOTE | 2018-01-05 19:35 | CT ---
EXAMINATION TYPE: CT angio head DATE OF EXAM: 01/05/2018 HISTORY: Headache, nausea, sweating, right ear ringing, and chest pain. COMPARISON: NONE CT DLP: 935.1 mGycm. Automated Exposure Control for Dose Reduction was Utilized. TECHNIQUE: CTA scan of the neck is performed with IV Contrast, patient injected with 100 mL of Isovu e 370, axial images are obtained, coronal and sagittal reformatted images are reviewed. Three-D recon structed images are created on an independent workstation and reviewed. FINDINGS: The brain in its unenhanced portions as discussed on the unenhanced brain dictation of the same date. Carotid/Vascular Structures: Vertebral arteries are codominant. Basilar artery is unremarkable. Poste rior cerebral arteries are also unremarkable. Posterior communicating arteries are diminutive but maxwell ear present and therefore the [place] of [place] appears intact. Cervical portions of the internal fish tid arteries and intracranial portions also appear unremarkable. No intracranial aneurysm is seen. No dissection is noted. No focal stenosis. Other: Complete opacification of the left mastoid air cells as discussed on the CT brain dictation of the same date. IMPRESSION: No vascular occlusion, intracranial aneurysm, or focal stenosis. No gross evidence of di ssection.
[2018-01-05] MEDS ORDERED: ASPIRIN 81 MG PO STA (20:17)
[2018-01-05] MEDS ORDERED: NITROGLYCERIN SL TABS 0.4 MG TAB SUBLINGUAL PRN (20:17)
[2018-01-05] MEDS ORDERED: NITROGLYCERIN OINT 1 INCH/GM PACKET TOPICAL SCH (20:30)
[2018-01-05] MEDS ORDERED: IBUPROFEN 800 MG TAB PO PRN (20:44)
[2018-01-05] MEDS ORDERED: CYCLOBENZAPRINE 10 MG TAB PO PRN (20:44)
[2018-01-05] MEDS ORDERED: ALPRAZolam 0.25 MG TAB PO PRN (20:45)
[2018-01-05] MEDS ORDERED: ACETAMINOPHEN TAB 500 MG TAB PO PRN (20:45)
[2018-01-05] MEDS ORDERED: TEMAZEPAM 15 MG CAP PO PRN (20:45)
[2018-01-05] MEDS ORDERED: NON-FORMULARY DRUG (Vitamin E [Vitamin E] 100 UNIT) PO SCH (21:00)
[2018-01-05] MEDS ORDERED: NON-FORMULARY DRUG (Biotin [Biotin] 5 MG) PO SCH (21:00)
[2018-01-05 21:17] VITALS: BP 115/57; PULSE 82; TEMP 97.5
[2018-01-06] MEDS ORDERED: PANTOPRAZOLE 40 MG TABLET PO SCH (07:30)
--- NOTE | 2018-01-06 07:49 | HP ---
HISTORY AND PHYSICAL HISTORY AND PHYSICAL/DISCHARGE SUMMARY: This is a combined discharge summary and history and physical and discharge summary. This 52-year-old woman with a past medical history of multiple medical problems was admitted with chest pain and headache. However the patient left the hospital AGAINST MEDICAL ADVICE before being seen. Please refer to the ER notes and staff notes for further information. FINAL DIAGNOSES: 1. Chest pain, possible unstable angina. 2. Headache. MMODL / IJN: [id number] /
[2018-01-06] MEDS ORDERED: LORATADINE 10 MG TAB PO SCH (09:00)
[2018-01-06] MEDS ORDERED: ASPIRIN 325 MG TAB PO SCH (09:00)
[2018-01-06] MEDS ORDERED: MAGNESIUM OXIDE 400 MG TAB PO SCH (09:00)
[2018-01-06] MEDS ORDERED: CHOLECALCIFEROL 1,000 UNIT TAB PO SCH (09:00)
[2018-01-06] MEDS ORDERED: FLUTICASONE 50MCG/SPRAY NASAL 16GM EA NOSTRIL SCH (09:00)
[2018-01-06] MEDS ORDERED: MULTIVITAMINS, THERA 1 EACH TAB PO SCH (12:00)
== END 2018-01-05 21:19 | disposition left against medical advice (07) ==
LOC: EC 17:31 → 3OBS 20:16 → UNDOADMOB 20:16 → EC 21:19
DX: R07.89 Other chest pain (principal); R51 Headache; F17.200 Nicotine dependence, unspecified, uncomplicated; Z79.51 Long term (current) use of inhaled steroids; Z79.899 Other long term (current) drug therapy; Z88.0 Allergy status to penicillin; Z88.1 Allergy status to other antibiotic agents
CPT/HCPCS: 36415; 80053; 82550; 82553; 83735; 84484; 85025; 85610; 85730; 71046; 70496; 70450; 99285; 96374; J2765; Q9967

== ENCOUNTER → 2018-06-19 | Outpatient (CLI) | payer BC ==
--- NOTE | 2018-06-19 16:03 | US ---
EXAMINATION TYPE: US thyroid st tissue head/neck DATE OF EXAM: 06/19/2018 COMPARISON: Prior thyroid ultrasound January 26, 2016 CLINICAL HISTORY: E01.0 Thyroidomegaly. follow up exam GLAND SIZE: Right Lobe: 4.3 x 1.4 x 1.5 cm Overall Parenchyma: homogenous Left Lobe: 3.8 x 1.7 x 1.4 cm Overall Parenchyma: heterogeneous Isthmus Thickness: 0.3 cm NODULES RIGHT: # of nodules measured on right: 0 LEFT: # of nodules measured on left: 1 1. 3.0 X 1.5 x 1.0 cm mixed nodule at the mid pole with well-defined margins. This nodule is wider than tall and shows intranodular vascularity. Prior size: 3.0 x 1.3 x 1.6 cm ISTHMUS: # of nodules measured in the isthmus: 1 1. 0.4 X 0.3 x 0.4 cm hypoechoic solid nodule on the right side with well-defined margins. This nod ule is wider than tall and shows intranodular vascularity. Prior size: not seen previously Bilateral neck scanned, no evidence of lymphadenopathy. There is persistent heterogeneous normal-sized thyroid with dominant mixed nodule left thyroid that h as been sampled in the past. No new greater than 1 cm nodules are identified. IMPRESSION: No new suspicious greater than 1 cm nodules. Mixed 3 cm left-sided nodule was sampled 2016.
== END | disposition home or self-care (01) ==
LOC: RADUSWWP 15:30
PROVIDERS: ATTEND Internal Medicine
DX: E01.0 Iodine-deficiency related diffuse (endemic) goiter (principal)
CPT/HCPCS: 76536

== ENCOUNTER → 2018-09-03 | Outpatient (CLI) | payer BC ==
--- NOTE | 2018-09-04 16:38 | XR ---
EXAMINATION TYPE: XR finger RT DATE OF EXAM: 09/04/2018 COMPARISON: NONE HISTORY: Injury with pain. TECHNIQUE: 2 views of right third finger are acquired. FINDINGS: No acute fracture or dislocation is seen. There is mild to moderate narrowing third PIP rafaela nt. No significant spurring is present. Overlying soft tissue is unremarkable. IMPRESSION: No acute fracture or dislocation in the third finger of right hand
== END | disposition home or self-care (01) ==
LOC: RADXRYALE 14:00
PROVIDERS: ATTEND Internal Medicine
DX: M79.89 Other specified soft tissue disorders (principal)

== ENCOUNTER → 2018-12-26 | Outpatient (CLI) | payer BC ==
--- NOTE | 2018-12-30 10:32 | MM ---
Reason for exam: screening (asymptomatic). Last mammogram was performed 1 year and 3 months ago. History: Family history of breast cancer in maternal aunt at age 40, breast cancer in maternal grandmother at age 80, and breast cancer in mother at age 65. US breast aspiration single LT of the left breast, March 28, 2016. Benign US biopsy breast VAD RT of the right breast, March 28, 2016. Benign US breast aspiration single LT of the left breast, April 22, 2015. Benign US biopsy breast VAD LT of the left breast, April 22, 2015. Took hormonal contraceptives for 1 year. Physical Findings: A clinical breast exam by your physician is recommended on an annual basis and results should be correlated with mammographic findings. MG 3D Screening Mammo W/Cad Bilateral CC and MLO view(s) were taken. Prior study comparison: September 27, 2017, bilateral MG screening mammo w CAD. March 28, 2016, right breast MG diagnostic mammo RT wo CAD. The breast tissue is heterogeneously dense. This may lower the sensitivity of mammography. Finding: There are round, regional calcifications in the lower inner quadrant, middle position of the left breast. Calcifications not biopsied although couple nearby clips. Previous mammotome biopsy in the right breast and in the left breast x 2. ASSESSMENT: Incomplete: need additional imaging evaluation, BI-RAD 0 RECOMMENDATION: Special view mammogram of the left breast. [facility] will attempt to contact patient to return for supplemental views.
== END | disposition home or self-care (01) ==
LOC: RADMAMWWP 13:34
PROVIDERS: ATTEND Family Medicine
DX: Z12.31 Encounter for screening mammogram for malignant neoplasm of breast (principal)
CPT/HCPCS: 77063; 77067

== ENCOUNTER → 2018-12-26 | Outpatient (CLI) | payer BC ==
--- NOTE | 2018-12-26 15:12 | CT ---
EXAMINATION TYPE: CT iac wo con DATE OF EXAM: 12/26/2018 COMPARISON: 01/05/2018 HISTORY: dizziness, ringing in the Rt ear, fluid in Lt ear CT DLP: 150 mGycm Automated exposure control for dose reduction was used. CONTRAST: No contrast FINDINGS: There is opacification of left mastoid air cells. This extends into the attic and surrounds the incus and malleus. Correlate for acute left mastoiditis. Right mastoid air cells are clear. The internal auditory canals are normal without mention or erosion . Cochlea are normal. Semicircular canals are normal. Right incus and malleus are normal. Middle ears are clear. External auditory canals are clear. The ostiomeatal units are partially obstructed bilaterally. There is left septal deviation Scutum are normal. IMPRESSION: CLINICAL CORRELATION RECOMMENDED FOR ACUTE LEFT MASTOIDITIS
== END | disposition home or self-care (01) ==
LOC: RADCTMAIN 13:01
PROVIDERS: ATTEND Otolaryngology
DX: H93.19 Tinnitus, unspecified ear (principal); H91.90 Unspecified hearing loss, unspecified ear; H70.92 Unspecified mastoiditis, left ear
CPT/HCPCS: 70480

== ENCOUNTER → 2019-01-06 | Outpatient (CLI) | payer BC ==
--- NOTE | 2019-01-07 12:03 | MM ---
Reason for exam: additional evaluation requested from abnormal screening. Last mammogram was performed less than 1 month ago. History: Family history of breast cancer in 2 maternal aunts at age 70, breast cancer in mother at age 65, breast cancer in maternal grandmother at age 80, and endometrial cancer in maternal aunt at age 50. US breast aspiration single LT of the left breast, March 28, 2016. Benign US biopsy breast VAD RT of the right breast, March 28, 2016. Benign US breast aspiration single LT of the left breast, April 22, 2015. Benign US biopsy breast VAD LT of the left breast, April 22, 2015. Took hormonal contraceptives for 1 year. Physical Findings: Nurse Summary: 0.5cm nodule in the left breast at 3-4 o'clock (nurse TM). MG 3D Work Up W/Cad LT CC with magnification, LM with magnification, and LM view(s) were taken of the left breast. Prior study comparison: December 26, 2018, bilateral MG 3d screening mammo w/cad. September 27, 2017, bilateral MG screening mammo w CAD. The breast tissue is heterogeneously dense. This may lower the sensitivity of mammography. Upper inner quadrant segmental left middle depth heterogeneous calcifications have increased from 2014 and 2015 and questionable more recent exams. Stereotactic core biopsy recommended. These results were verbally communicated with the patient and result sheet given to the patient on 01/06/19. ASSESSMENT: Suspicious, BI-RAD 4 RECOMMENDATION: Stereotactic core biopsy of the left breast. Called with mammographic findings and has scheduled an appointment for the patient for 01/27/19 at 10:[address] Benjamin. Biopsy scheduled for 01/21/19 at 10:20. PRELIMINARY REPORT CALLED AND FAXED TO DR. BENJAMIN ON 01/07/19.
== END | disposition home or self-care (01) ==
LOC: RADMAMWWP 14:23
PROVIDERS: ATTEND Internal Medicine
DX: R92.8 Other abnormal and inconclusive findings on diagnostic imaging of breast (principal)
CPT/HCPCS: 77061; 77065

== ENCOUNTER → 2019-01-21 | Day surgery (SDC) | payer BC ==
[2019-01-21 09:48] VITALS: RESP 16; BMI 24.3
[2019-01-21 11:01] VITALS: BP 123/79; PULSE 66; TEMP 97.7
--- NOTE | 2019-01-21 13:49 | MM ---
EXAMINATION TYPE: MG stereo VAD BX LT DATE OF EXAM: 01/21/2019 COMPARISON: Diagnostic left breast mammogram dated 01/06/2019 CLINICAL HISTORY: Increasing left breast calcifications for which stereotactic guided biopsy was recommended. TECHNIQUE: Stereotactic guided core biopsy of left breast. FINDINGS: The procedure of stereotactic guided core biopsy was explained to the patient. Benefits, alternatives, and risks were discussed. An informed consent was then obtained. Preprocedural timeout was performed. The shortness pathway for biopsy was chosen. Shortness pathway was CC from above approach. Preprocedural localization images were obtained and the increasing upper inner quadrant segmental calcifications were localized. Coordinates were calculated. Subsequently 10 cc of lidocaine without epinephrine was utilized to anesthetize the skin and deeper subcutaneous soft tissues. The needle was advanced to the appropriate depth. Prefire images were obtained ensuring appropriate location. Postfire injection of 10 cc of lidocaine with epinephrine was utilized to anesthetize the site of biopsy. A vacuum assisted biopsy gun was used to obtain 7 core samples. The patient tolerated the procedure well without any immediate complication. The patient was kept in the radiology department for short stay after the procedure and then discharged home in stable condition. Targeted calcifications are identified in specimen mammogram. Post biopsy mammogram shows the biopsy marker to appear in satisfactory position relative to the targeted area of concern on the preprocedure images without migration. IMPRESSION: SUCCESSFUL, UNCOMPLICATED STEREOTACTIC GUIDED CORE BIOPSY INCREASING SEGMENTAL CALCIFICATIONS IN THE UPPER INNER QUADRANT OF THE LEFT BREAST, FULL PATHOLOGY RESULTS TO FOLLOW. Pathology Results: Benign LEFT BREAST, STEREOTACTIC CORE BIOPSY: Fibrocystic changes including sclerosing adenosis with calcifications, cysts and fibrosis. Recommendation Follow up mammogram of the left breast in 6 months. ARI
== END ==
LOC: RADMAMWWP 09:13
PROVIDERS: ATTEND Internal Medicine
DX: N60.22 Fibroadenosis of left breast (principal); N60.32 Fibrosclerosis of left breast
CPT/HCPCS: 88305; 19081; A4648; J2001

== ENCOUNTER → 2019-03-03 | Outpatient (CLI) | payer BC ==
--- NOTE | 2019-03-03 14:54 | CT ---
EXAMINATION TYPE: CT iac wo con DATE OF EXAM: 03/03/2019 COMPARISON: CT IAC dated 12/26/2018 HISTORY: Left-sided Mastoiditis CT DLP: 142.70 mGycm. Automated Exposure Control for Dose Reduction was Utilized. TECHNIQUE: CT scan of internal auditory canal is performed without contrast, thin cut axial images ar e obtained, coronal reformatted images are also reviewed. FINDINGS: There is near complete interval clearing of the previously seen opacification of the entire ty of the left mastoid air cells. No only few of the left mastoid air cells contain fluid. No middle ear cavity fluid is seen. Thin bandlike densities along the left tympanic membrane and right tympanic membrane can be seen as sequela of recurrent otitis media. The external auditory canals are patent b ilaterally. The middle ear ossicles are symmetric and unremarkable. There is no evidence of suspici ous surrounding soft tissue density to suggest cholesteatoma. The scutum is preserved bilaterally. The cochlea and the semicircular canals are symmetric and unremarkable. Vestibular aqueduct and inte rnal carotid canal appear unremarkable. Temporomandibular joints are maintained bilaterally. Visualized paranasal sinuses are grossly clear other than minimal mucosal thickening in the ethmoid sinuses. IMPRESSION: 1. Marked improvement of the previously seen complete opacification of the left mastoid air cells wit h only minimal amount of fluid remaining. 2. Thin bandlike densities along both tympanic membranes, typically sequela of recurrent infection. N o current middle ear cavity fluid bilaterally. 3. Mild mucosal thickening of the ethmoid sinuses.
== END ==
LOC: RADCTMAIN 13:06
PROVIDERS: ATTEND Otolaryngology
DX: H74.8X2 Other specified disorders of left middle ear and mastoid (principal); R93.89 Abnormal findings on diagnostic imaging of other specified body structures
CPT/HCPCS: 70480

== ENCOUNTER → 2019-09-02 | Outpatient (CLI) | payer BC ==
[2019-09-02 14:56] LABS: HCT 43.1 % (34.0-46.0); HGB 14.2 gm/dL (11.4-16.0); MCH 34.7 pg (25.0-35.0); MCHC 32.8 g/dL (31.0-37.0); MCV 105.8 fL (80.0-100.0); Macrocytosis Slight; Mean Platelet Volume 7.5; Platelet Count 256 k/uL (150-450); RBC 4.08 m/uL (3.80-5.40); RDW 11.8 % (11.5-15.5); WBC 7.4 k/uL (3.8-10.6)
[2019-09-02 20:03] LABS: African American GFR (CKD) 97.6 (60.0-200.0); Albumin 4.1 g/dL (3.80-4.90); Albumin/Globulin Ratio 2.16 (1.60-3.17); Anion Gap 0.2 mmol/L (4.00-12.00); BUN/Creat Ratio 16.25 Ratio (12.00-20.00); Carbon Dioxide 33.8 mmol/L (21.6-31.8); Globulin 1.9 g/dL (1.6-3.3); Non-African American GFR(CKD) 84.2 (60.0-200.0); Potassium 4.4 mmol/L (3.5-5.5); Total Bilirubin 0.3 mg/dL (0.2-1.2)
[2019-09-02 20:05] LABS: T4, Free (Free Thyroxine) 1.1 ng/dL (0.80-1.80)
== END | disposition home or self-care (01) ==
LOC: LABWHC1 13:33
PROVIDERS: ATTEND Physician Assistant
DX: G62.9 Polyneuropathy, unspecified (principal)
CPT/HCPCS: 36415; 80053; 82607; 84207; 84439; 84443; 84481; 85027

== ENCOUNTER → 2020-04-15 | Outpatient (CLI) | payer BC | END | disposition home or self-care (01) | LOC: LABWHC1 13:38 | PROVIDERS: ATTEND Physician Assistant | DX: I49.9 Cardiac arrhythmia, unspecified (principal) | CPT/HCPCS: 36415; 93005 ==

== ENCOUNTER → 2020-04-15 | Outpatient (CLI) | payer BC ==
--- NOTE | 2020-04-16 14:38 | MM ---
Reason for exam: screening (asymptomatic). Last mammogram was performed 1 year and 3 months ago. History: Patient is postmenopausal. Family history of breast cancer in 2 maternal aunts at age 70, breast cancer in mother at age 65, breast cancer in maternal grandmother at age 80, and endometrial cancer in maternal aunt at age 50. Benign MG stereo VAD BX LT of the left breast, January 21, 2019. US breast aspiration single LT of the left breast, March 28, 2016. Benign US biopsy breast VAD RT of the right breast, March 28, 2016. Benign US breast aspiration single LT of the left breast, April 22, 2015. Benign US biopsy breast VAD LT of the left breast, April 22, 2015. Took hormonal contraceptives for 1 year. Physical Findings: A clinical breast exam by your physician is recommended on an annual basis and results should be correlated with mammographic findings. MG 3D Screening Mammo W/Cad Bilateral CC and MLO view(s) were taken. Prior study comparison: January 06, 2019, left breast MG 3d work up w/cad LT. December 26, 2018, bilateral MG 3d screening mammo w/cad. The breast tissue is heterogeneously dense. This may lower the sensitivity of mammography. There are benign appearing round regional calcifications in the left breast. Previous mammotome biopsy in the right breast and in the left breast x 3. There is chronic nodularity bilaterally. There is no new dominant lesion. ASSESSMENT: Benign, BI-RAD 2 RECOMMENDATION: Routine screening mammogram of both breasts in 1 year.
== END | disposition home or self-care (01) ==
LOC: RADMAMWWP 13:20
PROVIDERS: ATTEND Internal Medicine
DX: Z12.31 Encounter for screening mammogram for malignant neoplasm of breast (principal)
CPT/HCPCS: 77063; 77067

== ENCOUNTER 2020-09-24 19:53 | Emergency (ER) | payer BC ==
[2020-09-24 20:14] VITALS: RESP 18; TEMP 98.2
[2020-09-24] MEDS ORDERED: LIDOCAINE 1% INJ 10MG/ML (20 ML MDV) SQ ONE (20:21)
[2020-09-24] MEDS ORDERED: DIPH,PERTUS(ACELL)TETVAC-LF 0.5 ML VIAL IM ONE (20:37)
--- NOTE | 2020-09-24 20:40 | ED ---
Skin/Abscess/FB HPI - General Chief complaint: Skin/Abscess/Foreign Body Stated complaint: Fish hook in R finger Time Seen by Provider: 09/24/20 20:19 Source: patient Mode of arrival: ambulatory Limitations: no limitations - History of Present Illness Initial comments: 55-year-old female presents emergency Department with the chief complaint fishhook in finger. Status occurred about one hour prior to arrival while she was fishing. States her tetanus isn't up-to-date. States the hook is partially embedded into the distal end of her right second digit. Reports pain with movement. She denies any paresthesias. States she did not take any medication to alleviate the pain. - Related Data Home Medications Medication Instructions Recorded Confirmed Cetirizine HCl [Zyrtec] 10 mg PO DAILY 12/02/15 01/21/19 Cholecalciferol [Vitamin D3] 1,000 unit PO DAILY 12/02/15 01/21/19 Fluticasone Nasal [place] [Flonase 1 spray EA NOSTRIL DAILY 12/02/15 01/21/19 Nasal [place]] Ibuprofen [Motrin] 800 mg PO DAILY PRN 12/02/15 01/21/19 Multivitamins, Thera [Multivitamin] 1 tab PO DAILY 12/02/15 01/21/19 Turmeric/Turmeric Root Extract 1 cap PO DAILY 07/11/16 01/21/19 [Turmeric 450-50 mg Capsule] Magnesium Oxide [Mag-Oxide] 200 mg PO DAILY 08/15/17 01/21/19 Vitamin E 100 unit PO HS 08/15/17 01/21/19 atenoloL [Tenormin] 25 mg PO DAILY 01/07/19 01/21/19 Allergies Allergy/AdvReac Type Severity Reaction Status Date / Time Penicillins Allergy Rash/Hives Verified 09/24/20 20:12 cefaclor [From Ceclor] AdvReac EAR RINGING Verified 09/24/20 20:12 clindamycin AdvReac EAR RINGING Verified 09/24/20 20:12 Review of Systems ROS Statement: Those systems with pertinent positive or pertinent negative responses have been documented in the HPI. ROS Other: All systems not noted in ROS Statement are negative. Past Medical History Past Medical History: Fibromyalgia, Osteoarthritis (OA) Additional Past Medical History / Comment(s): ARTHRITIS, SPURS, DJD, NEUROPATHY,perferated disc, nodules on thyroid, mastitis History of Any Multi-Drug Resistant Organisms: None Reported Past Surgical History: Section, Cholecystectomy, Hernia Repair, Uterine Ablation Additional Past Surgical History / Comment(s): BACK INJECTIONS FOR HERNIATED DISC X8., BILATERAL BREAST BIOPSIES, Past Anesthesia/Blood Transfusion Reactions: Postoperative Nausea & Vomiting (PONV) Past Psychological History: No Psychological Hx Reported Smoking Status: Current every day smoker Past Alcohol Use History: None Reported Past Drug Use History: None Reported General Exam Limitations: no limitations General appearance: alert, in no apparent distress Head exam: Present: atraumatic, normocephalic, normal inspection Eye exam: Present: normal appearance, PERRL, EOMI Pupils: Present: normal accommodation ENT exam: Present: normal exam, normal oropharynx, mucous membranes moist Neck exam: Present: normal inspection, full ROM. Absent: tenderness Respiratory exam: Present: normal lung sounds bilaterally. Absent: respiratory distress Cardiovascular Exam: Present: regular rate, normal rhythm, normal heart sounds. Absent: systolic murmur Extremities exam: Present: full ROM, tenderness (Tenderness at the injured site), normal capillary refill. Absent: normal inspection ([place] noted on the distal end of the right second digit) Back exam: Present: normal inspection, full ROM Neurological exam: Present: alert, oriented X3 Psychiatric exam: Present: normal affect, normal mood Skin exam: Present: warm, dry, intact, normal color Course Vital Signs 09/24/20 20:12 Temperature 98.2 F Pulse Rate 93 Respiratory 18 Rate Blood Pressure 110/57 O2 Sat by Pulse 94 L Oximetry Procedures - Forgein Body Removal Soft Tissue Consent Obtained: verbal consent Site: other (Right second digit) Anesthetic Used: lidocaine 1% Amount (mLs): 1 Foreign Body Suspected: Fish Hook Foreign Body Removed: yes Foreign Body Removal Technique: Forceps Complications: pain, bleeding Patient Tolerated Procedure: well, no complications Medical Decision Making - Medical Decision Making 55-year-old female presents emergency Department with a chief complaint of fishhook in the right finger. On physical examination, she is neurovascularly intact. I was able to perform local anesthesia with lidocaine and the hook was removed with pliers. Patient tolerated procedure well. Her tetanus was updated. We'll give Keflex for the next 5 days. Return parameters discussed the patient was obtained group. Case discussed with physician. Disposition Clinical Impression: [place] injury to finger Disposition: HOME SELF-CARE Condition: Stable Instructions (If sedation given, give patient instructions): Soft Tissue Foreign Body (ED) Additional Instructions: Take prescribed medication as directed. Return to emergency department if symptoms worsen. Is patient prescribed a controlled substance at d/c from ED?: No Referrals: Janneth Benjamin MD [Primary Care Provider] - 1-2 days Time of Disposition: 20:40
[2020-09-24 20:59] VITALS: BP 117/67; PULSE 86
== END 2020-09-24 20:58 | disposition home or self-care (01) ==
LOC: EC 19:53
DX: S60.450A Superficial foreign body of right index finger, initial encounter (principal); F17.200 Nicotine dependence, unspecified, uncomplicated; M19.90 Unspecified osteoarthritis, unspecified site; M79.7 Fibromyalgia; W45.8XXA Other foreign body or object entering through skin, initial encounter
CPT/HCPCS: 90471; 96372; 99282; 90715; J2001

== ENCOUNTER → 2020-11-15 | Outpatient (CLI) | payer BC ==
--- NOTE | 2020-11-15 11:37 | XR ---
EXAMINATION TYPE: XR chest 2V DATE OF EXAM: 11/15/2020 COMPARISON: 01/05/2018 HISTORY: Shortness of breath TECHNIQUE: Frontal and lateral views of the chest are obtained. FINDINGS: Scattered senescent parenchymal changes noted. Hyperinflation compatible with COPD. No evidence for infiltrate. No evidence for atelectasis. Heart size is stable. Mediastinal structures are stable and grossly unremarkable. No evidence for hilar prominence. Degenerative changes dorsal spine. IMPRESSION: 1. No evidence for acute pulmonary disease.
== END | disposition home or self-care (01) ==
LOC: RADXRYALE 10:46
PROVIDERS: ATTEND Internal Medicine
DX: R06.02 Shortness of breath (principal)
CPT/HCPCS: 71046

== ENCOUNTER → 2022-05-01 | Outpatient (CLI) | payer OTHER ==
--- NOTE | 2022-05-02 08:39 | MM ---
Reason for Exam: Screening (asymptomatic). Last mammogram was performed 2 year(s) and 0 month(s) ago. Patient History: Menarche at age 15. First Full-Term at age 20. Postmenopausal. Patient has history of breast feeding. Patient used Hormonal Contraceptives for 1 year. 01/21/2019, Benign Core Biopsy on the left side. 03/28/2016, Cyst Aspiration on the Left side. 03/28/2016, Benign Core Biopsy on the right side. 04/22/2015, Benign Cyst Aspiration on the left side. 04/22/2015, Benign Core Biopsy on the left side. Maternal grandmother had breast cancer, age 80. Maternal aunt had breast cancer, age 70. Maternal aunt had breast cancer, age 70. Maternal aunt had breast cancer, age 50. Mother had breast cancer, age 65. Risk Values: Cassi 5 year model risk: 3.0%. NCI Lifetime model risk: 19.6%. Prior Study Comparison: 12/26/2018 Bilateral Screening Mammogram, [facility]. 01/06/2019 Left Diagnostic Mammogram, [facility]. 04/15/2020 Bilateral Screening Mammogram, [facility]. Tissue Density: The breast tissue is heterogeneously dense. This may lower the sensitivity of mammography. Findings: Analyzed By CAD. There is no suspicious group of microcalcifications or new suspicious mass in either breast. Stable punctate calcifications within the left breast. There is mammotome biopsy x3 in the left breast. Previous mammotome biopsy in the right breast. Overall Assessment: Benign, BI-RAD 2 Management: Screening Mammogram of both breasts in 1 year. A clinical breast exam by your physician is recommended on an annual basis and results should be correlated with mammographic findings. Electronically signed and approved by: Marquez Dietrich D.O.
== END | disposition home or self-care (01) ==
LOC: RADMAMWWP 14:43
PROVIDERS: ATTEND Family Medicine
DX: Z12.31 Encounter for screening mammogram for malignant neoplasm of breast (principal); Z80.3 Family history of malignant neoplasm of breast; Z78.0 Asymptomatic menopausal state
CPT/HCPCS: 77063; 77067

== ENCOUNTER → 2024-01-08 | Outpatient (CLI) | payer OTHER ==
--- NOTE | 2024-01-09 09:44 | MM ---
Reason for Exam: Screening (asymptomatic). Last mammogram was performed 1 year(s) and 9 month(s) ago. Patient History: Menarche at age 15. First Full-Term at age 20. Postmenopausal. Patient has history of breast feeding. Patient used Hormonal Contraceptives for 1 year. 01/21/2019, Benign Core Biopsy on the left side. 03/28/2016, Cyst Aspiration on the Left side. 03/28/2016, Benign Core Biopsy on the right side. 04/22/2015, Benign Cyst Aspiration on the left side. 04/22/2015, Benign Core Biopsy on the left side. Maternal grandmother had breast cancer, age 80. Maternal aunt had breast cancer, age 70. Maternal aunt had breast cancer, age 70. Maternal aunt had breast cancer, age 50. Mother had breast cancer, age 65. Risk Values: Cassi 5 year model risk: 3.3%. NCI Lifetime model risk: 18.8%. Prior Study Comparison: 01/06/2019 Left Diagnostic Mammogram, [facility]. 04/15/2020 Bilateral Screening Mammogram, [facility]. 05/01/2022 Bilateral MG 3D screening mammo w/cad, [facility]. Tissue Density: The breasts are heterogeneously dense, which may obscure small masses. Findings: Analyzed By CAD. There is no suspicious group of microcalcifications or new suspicious mass in either breast. Overall Assessment: Benign, BI-RAD 2 Management: Screening Mammogram of both breasts in 1 year. . Patient should continue monthly self-breast exams. A clinical breast exam by your physician is recommended on an annual basis. This exam should not preclude additional follow-up of suspicious palpable abnormalities. Note on Cassi scores and lifetime risk: 1. A Cassi score greater than 3% is considered moderate risk. If this is the case, consider specialist referral to assess eligibility for a risk reducing agent. 2. If overall lifetime risk for the development of breast cancer is 20% or higher, the patient may qualify for future screening with alternating mammogram and breast MRI. [facility], , 01/09/2024 9:40 AM. Electronically signed and approved by: Mc Oneill M.D. Radiolog[facility]
== END | disposition home or self-care (01) ==
LOC: RADMAMWWP 08:06
PROVIDERS: ATTEND Family Medicine
DX: Z12.31 Encounter for screening mammogram for malignant neoplasm of breast
CPT/HCPCS: 77063; 77067

== ENCOUNTER → 2024-01-18 | Outpatient (CLI) | payer OTHER ==
--- NOTE | 2024-01-19 14:21 | US ---
EXAMINATION TYPE: US kidneys/renal and bladder DATE OF EXAM: 01/18/2024 COMPARISON: NONE CLINICAL INDICATION: Female, 58 years old with history of R31.9 Hematuria; abn labs TECHNIQUE: Grayscale and color Doppler imaging of the bilateral kidneys and urinary bladder: FINDINGS: EXAM MEASUREMENTS: Right Kidney: 10.1x3.7x5.5 cm Left Kidney: 11.7x5.8x5.7 cm Right Kidney: No hydronephrosis or masses seen Left Kidney: No hydronephrosis or masses seen Bladder: wnl Bilateral Jets seen: Yes There is no evidence for hydronephrosis at this point in time. No nephrolithiasis is seen. No isi s are identified. The urinary bladder is anechoic. Bilateral ureteral jets are seen. exam limited by bowel gas, habitus IMPRESSION: No evidence for obstructive uropathy or acute process. [facility], , 01/19/2024 2:19 PM
== END ==
LOC: RADUSWWP 15:50
PROVIDERS: ATTEND Family Medicine
DX: R31.9 Hematuria, unspecified (principal)
CPT/HCPCS: 76770